=== PATIENT | male | born 1995 | race Two or more races ===

== ENCOUNTER 2024-08-15 13:10 | Emergency (ER) | payer MEDICAID, SELFPAY ==
[2024-08-15 14:16] VITALS: BP 130/77; PULSE 87; RESP 18; TEMP 36.7; O2SAT 97; BMI 25.9
--- NOTE | 2024-08-15 14:23 | XR_ITS ---
Examination: Fingers, right hand first digit 3 views Technique: AP, oblique, lateral views right hand first digit 3 views. Exam date and time: August 15, 2024, 1442 hrs. Indications: Injury to the hand one month ago with first digit pain Findings: Soft tissue swelling about the first digit No acute fracture No cortical bone destruction No opaque foreign body Impression: No opaque foreign body
--- NOTE | 2024-08-15 14:25 | EDNOTE_ITS ---
<Statement entered by Meli Gonzalez MD - 08/25/24 00:59> As co-signing physician, I was present and available for consult prn. I concur with the plan and care as documented by the midlevel provider. ED Wound/Laceration-RME/HPI General Chief Complaint: Wound/Laceration Stated Complaint: laceration to right thumb 2 weeks ago Time Seen by Provider: 08/15/24 13:23 Arrival date/time: 08/15/24 13:10 RME / HPI RME / HPI narrative: 28-year-old male patient came in for evaluation regarding request for x-ray right thumb. Patient has laceration to the right thumb proximal phalanx, palmar aspect, sustained a month ago. Since then patient is unable to flex the thumb. Patient came in because he is worried that there might be a glass in it. Injury sustained with a glass. Denies any swelling denies any fever denies any pus coming out. Denies any other complaints Related Data Allergies Allergy/AdvReac Type Severity Reaction Status Date / Time NKA* Allergy Uncoded 08/15/24 13:13 Review of Systems Review of Systems Narrative Review of Systems: Review of system reviewed and within normal limits except mentioned in HPI ED Exam Narrative Physical exam: VITAL SIGNS: Reviewed. GENERAL APPEARANCE: Alert and interactive, follows commands, no acute distress, HEAD AND FACE: Non-traumatic. ENT: PERRL, pink conjunctivitis, eyelid no trauma, Mucous membrane moist. NECK: Supple, nontender, no nuchal rigidity. EXTREMITIES: Nontender, 2 cm laceration, right thumb palmar aspect proximal phalanx with inability to flex the thumb at interphalangeal joint area, no redness no pus, no drainage SKIN: Color pink, dry, no rash, no lacerations, no abrasions, no contusions. LYMPHATICS: Deferred. Course Quality Measures none Orders Category Date Time Status XR finger RT min 2V Stat Exams 08/15/24 14:23 Completed TET,DIP/PERT AC (Adult)-Tdap [Boostrix Adult (Tdap) Med 08/15/24 14:24 Discontinued Vacc] 0.5 ml IMI .ONCE ONE Vital Signs Vital signs: Vital Signs Temperature 98.0 F 08/15/24 14:16 Pulse Rate 87 08/15/24 14:16 Respiratory Rate 18 08/15/24 14:16 Blood Pressure 130/77 08/15/24 14:16 Pulse Oximetry (%) 97 08/15/24 14:16 Oxygen Delivery Method Room Air 08/15/24 14:16 Wound / Laceration MDM Narrative [facility] Narrative:: 28-year-old male patient came in for evaluation regarding request for x-ray right thumb. Patient has laceration to the right thumb proximal phalanx, palmar aspect, sustained a month ago. Since then patient is unable to flex the thumb. Patient came in because he is worried that there might be a glass in it. Injury sustained with a glass. Denies any swelling denies any fever denies any pus coming out. Denies any other complaints X-ray of the right thumb showed no foreign body noted. Patient wound did not show any sign of infection. Patient was advised to see PCP and for referral to hand specialist for definitive management of the old tendon laceration right thumb Patient data External records reviewed:: None Clinical information provided by:: patient Social determinants that could affect healthcare access:: none Patient has the following chronic illnesses:: None How is presenting disease/condition affected by chronic disease/condition?: no chronic disease Evaluation data The following diagnostics were reviewed and interpreted by me:: radiology exam(s) Lab and/or radiology exams considered but not ordered:: None Interpretation Summary: See results [facility] Medications / Prescriptions Medications or Prescriptions considered but not ordered:: None Medication administrations:: Medication Administration History Discontinued Medications Diphtheria/Tetanus/Acell Pertussis (Diphth,Pertuss(Acell),Tet Vac 0.5 Ml Syr- Adult) 0.5 ml IMi .ONCE ONE Stop: 08/15/24 14:25 Last Admin: 08/15/24 15:03 Dose: 0.5 ml Documented By: [employer] Consultations Consultation(s) initiated? (list below): No Diagnosis Wound Differential Diagnosis: laceration and other (Wound check, thumb laceration with injury of the tendon) Most likely diagnosis given after review of the tests above:: Wound check, tongue laceration, old, with tendon injury Admission Indicated Admission indicated?: not indicated Explain why admission is indicated or not indicated:: Stable Admission Request Was there a request for admission?: No Disposition Plan Disposition Plan: Discharge Discharge Attestation Discharge Attestation: Patient condition: Stable Discharge Plan Plan Patient Disposition: HOME (Self Care) Discharge Disposition comment: Stable Prescriptions/Referrals Referrals: Raheem Partida MD [Primary Care Provider] - In 1 week Problem List Clinical Impression: Visit for wound check, Laceration of flexor tendon of right thumb Patient/Caregiver Discharge Instructions Discharge Activity: activity as tolerated Education Materials: ED Wound Check (No Infection) Additional Instructions: Thank you for the opportunity for serving you today. You are stable for discharged . You are advised to: Follow-up with your PCP in 1 to 2 days Return to ED for worsening of symptoms Increase oral fluids Please ask your PCP to refer you to a hand specialist regarding your tendon injury right thumb Print Language: Kosovan Stand Alone Forms: Nakia Award Info., Patient Portal Info Letter PA/SENIOR GRADUATE ADVISOR Supervising Physician PA/SENIOR GRADUATE ADVISOR Supervising Physician: MD Lisa
[2024-08-15] MEDS: DIPHTH,PERTUSS(ACELL),TET VAC 0.5 ML SYR- ADULT IMi (15:03)
== END 2024-08-15 17:16 | disposition home or self-care (01) ==
PROVIDERS: Emergency Provider Emergency Medicine; PCP Family Medicine
DX: S61.011A Laceration without foreign body of right thumb without damage to nail, initial encounter (principal); S66.021A Laceration of long flexor muscle, fascia and tendon of right thumb at wrist and hand level, initial encounter; X58.XXXA Exposure to other specified factors, initial encounter; Z23 Encounter for immunization
CPT/HCPCS: 73140; 90471; 90715; 99283

== ENCOUNTER → 2024-08-28 | Outpatient (CLI) | payer MEDICAID, SELFPAY | END | disposition home or self-care (01) | LOC: SWHD 08:13 | PROVIDERS: PCP Physician Assistant; Referring Provider Physician Assistant; Visit Provider Surgery | DX: S61.001A Unspecified open wound of right thumb without damage to nail, initial encounter (principal); W25.XXXA Contact with sharp glass, initial encounter; F12.929 Cannabis use, unspecified with intoxication, unspecified | CPT/HCPCS: 99214; A9270; G0463 ==

== ENCOUNTER → 2024-09-04 | Outpatient (CLI) | payer MEDICAID, SELFPAY | END | disposition home or self-care (01) | PROVIDERS: PCP Physician Assistant; Referring Provider Physician Assistant; Visit Provider Surgery | DX: S61.001A Unspecified open wound of right thumb without damage to nail, initial encounter (principal); W25.XXXA Contact with sharp glass, initial encounter; F12.929 Cannabis use, unspecified with intoxication, unspecified | CPT/HCPCS: 99213; A9270; G0463 ==

== ENCOUNTER → 2024-09-11 | Outpatient (CLI) | payer MEDICAID, SELFPAY | END | disposition home or self-care (01) | PROVIDERS: PCP Physician Assistant; Referring Provider Physician Assistant; Visit Provider Physician Assistant | DX: S61.001A Unspecified open wound of right thumb without damage to nail, initial encounter (principal); W25.XXXA Contact with sharp glass, initial encounter; F12.929 Cannabis use, unspecified with intoxication, unspecified | CPT/HCPCS: 99213; A9270; G0463 ==

== ENCOUNTER → 2024-11-03 | Outpatient (CLI) | payer MEDICAID, SELFPAY ==
--- NOTE | 2024-11-03 10:48 | XR_ITS ---
Examination: MRI Examination: MRI right hand, without contrast Date and time of exam: November 03, 2024 1149 hours INDICATIONS: Laceration injury to the hand involving some June 2024, weakness loss of function in the thumb stiffness does not flex at the distal interphalangeal joints Technique: Multiple axial sagittal and coronal images of the right hand have been obtained with the Siemens high-resolution 1.5 Bharti MRI scanner. Images obtained include T2-weighted fat-suppressed sagittal sections, TR 3500, TE 46, T2 weighted coronal fat suppressed images, TR 3050, TE 84, T2-weighted transverse fat suppressed images, TR 3260, TE 63, proton density transverse images, TR 4720 TE 46, and T1 weighted coronal images, TR 560, TE 13. Findings: The ulnar collateral ligament is thickened but intact The radial collateral ligament appears normal at the metacarpal phalangeal joint Both the radial and collateral ligaments at the interphalangeal joint thumb are intact The volar and dorsal plates appear intact The abductor pollicis brevis tendon appears intact The flexor pollicis longus tendon also appears intact The extensor pollicis longus tendon appears thickened at its insertion seen into the proximal and distal phalangeal bases No annular han tear Flexor tendons at the wrist are intact, normal median nerve No occult fracture No avascular necrosis IMPRESSION: No occult fracture or avascular necrosis The ulnar collateral ligament is thickened but intact The extensor pollicis longus tendon appears thickened at its insertion site but grossly intact, clinical correlation advised
== END | disposition home or self-care (01) ==
PROVIDERS: PCP Physician Assistant; Referring Provider Surgery; Visit Provider Surgery
DX: M79.641 Pain in right hand (principal); M79.644 Pain in right finger(s); S61.001A Unspecified open wound of right thumb without damage to nail, initial encounter; X58.XXXA Exposure to other specified factors, initial encounter
CPT/HCPCS: 73218